=== PATIENT | female | born 1940 | race Caucasian/White ===

== ENCOUNTER 2017-04-13 18:10 | Emergency (ER) | payer MEDICARE ==
[~2017-04-13] VITALS: Ht 144.8 cm; Wt 73.0 kg
[~2017-04-13 18:10] MED LIST: ALPR0.25 PO; AMLO10TA2 PO; CHOL500050 PO; CLOT30CR24 TP; CYAN10006 IM; Docusate Sodium PO; FLUT16SP2 NS; GABA100C PO; LEVE500T9 PO; METH10TA PO; MULT-70 PO; PANT40TA2 PO
[2017-04-13] MEDS ORDERED: OMEP20CA10 PO (18:41)
[2017-04-13] MEDS ORDERED: OMEP40CA37 PO (18:41)
[2017-04-13] MEDS ORDERED: ASPI-869 PO (18:41)
[2017-04-13] MEDS ORDERED: LISI40TA4 PO (18:41)
--- NOTE | 2017-04-13 18:42 | NUR ---
MEDICATIONS REVIEWED WITH PATIENT BEST SHE CAN REMEMBER.
[2017-04-13] MEDS ORDERED: LIDOCAINE HCL 2% 20 ML VIAL TP ONE (19:00)
--- NOTE | 2017-04-13 19:10 | NUR ---
Patient A/Ox4. No Distress noted,able to ambulate to restroom with steady gait
--- NOTE | 2017-04-13 20:13 | NUR ---
Patient discharged to home in stable conditon with daughter taking patient home. Written and verbal after care instructions given. Patient verbalizes understanding of instructions. Staff use wheelchair to place patient on private vehicle that patient's daughter is driving
[2017-04-13 20:15] VITALS: BP 135/78
== END 2017-04-13 20:15 | disposition home or self-care (01) ==
LOC: ER 18:10
DX: S01.01XA Laceration without foreign body of scalp, initial encounter (principal); I10 Essential (primary) hypertension; J45.909 Unspecified asthma, uncomplicated; I50.9 Heart failure, unspecified; Z79.82 Long term (current) use of aspirin; Z85.3 Personal history of malignant neoplasm of breast; Z88.6 Allergy status to analgesic agent; Z88.2 Allergy status to sulfonamides; Z88.1 Allergy status to other antibiotic agents; Z88.8 Allergy status to other drugs, medicaments and biological substances; W01.0XXA Fall on same level from slipping, tripping and stumbling without subsequent striking against object, initial encounter; Y93.89 Activity, other specified; Y99.8 Other external cause status; Y92.89 Other specified places as the place of occurrence of the external cause
CPT/HCPCS: 70450; A4217; A4663

== ENCOUNTER 2017-09-08 16:34 | Emergency (ER) | payer MEDICARE ==
[~2017-09-08] VITALS: Ht 149.9 cm; Wt 72.6 kg
[~2017-09-08 16:34] MED LIST changes: -ALPR0.25 PO; +ASPI-869 PO; -CYAN10006 IM; -Docusate Sodium PO; +LISI40TA4 PO; -MULT-70 PO; +OMEP20CA10 PO; -PANT40TA2 PO
--- NOTE | 2017-09-08 16:45 | NUR ---
DR TRISTAN AT THE BEDSIDE FOR EVAL AND EXAM.
[2017-09-08 17:10] LABS: BASOPHILS # (AUTO) 0.1 K/uL (0.0-8.0); BASOPHILS % (AUTO) 0.7 % (0.0-2.0); EOSINOPHILS # (AUTO) 0.2 K/uL (0.0-0.7); EOSINOPHILS % (AUTO) 2.5 % (0.0-7.0); HEMATOCRIT 43.3 % (37-47); HEMOGLOBIN 14.3 G/DL (12.0-16.0); LYMPHOCYTES # (AUTO) 1.1 K/UL (0.8-4.8); LYMPHOCYTES % (AUTO) 12.1 % (20.5-51.5); MEAN CORPUSCULAR HEMOGLOBIN 28.7 UUG (27.0-31.0); MEAN CORPUSCULAR HGB CONC 33 g/dL (32.0-37.0); MEAN CORPUSCULAR VOLUME 86.7 FL (81.0-99.0); MONOCYTES # (AUTO) 1.2 K/UL (0.1-1.30); MONOCYTES % (AUTO) 12.7 % (0.0-11.0); NEUTROPHILS # (AUTO) 6.6 K/UL (1.8-8.9); PLATELET COUNT (AUTO) 201 K/UL (150-450); WHITE BLOOD COUNT (AUTO) 9.2 K/UL (4.0-11.2)
[2017-09-08 17:12] LABS: CARBON DIOXIDE 33 mmol/L (21-32); CHLORIDE 99 mmol/L (98-107); GLUCOSE 108 mg/dL (74-106); POTASSIUM 4.5 mmol/L (3.5-5.1); UREA NITROGEN, BLOOD 18 mg/dL (7-18)
[2017-09-08 17:18] LABS: ALANINE AMINOTRANSFERASE 19 U/L (14-59); ALKALINE PHOSPHATASE 112 U/L (50-136); ASPARTATE AMINOTRANSFERASE 20 U/L (15-37); BILIRUBIN,DIRECT 0.2 mg/dL (0.0-0.2); BILIRUBIN,TOTAL 0.8 mg/dL (0.2-1.0); TOTAL PROTEIN, SERUM 7.5 g/dL (6.4-8.2)
--- NOTE | 2017-09-08 17:20 | NUR ---
PT RESTING IN SPEAKING TO DAUGHTER AT THE BEDSIDE.
--- NOTE | 2017-09-08 19:03 | NUR ---
IV removed. Catheter intact and site benign. Pressure and 4x4 gauze applied to site. No bleeding noted.
[2017-09-08 19:04] VITALS: BP 138/77
--- NOTE | 2017-09-08 19:05 | NUR ---
Patient discharged to home in stable conditon. Written and verbal after care instructions given. Patient verbalizes understanding of instructions. PT LEFT ER ACCOMPAINED BY FAMILY.
== END 2017-09-08 19:05 | disposition home or self-care (01) ==
LOC: ER 16:35
DX: L03.114 Cellulitis of left upper limb (principal); I11.0 Hypertensive heart disease with heart failure; I50.9 Heart failure, unspecified; J45.909 Unspecified asthma, uncomplicated; M79.7 Fibromyalgia; Z79.82 Long term (current) use of aspirin; Z88.1 Allergy status to other antibiotic agents; Z88.2 Allergy status to sulfonamides
CPT/HCPCS: 36415; 83605; 85025; 85730; 87040; A4663; J2270; J2405; J2543; J3370; J3535; J7030

== ENCOUNTER 2017-11-08 15:32 | Emergency (ER) | payer MEDICARE ==
[~2017-11-08] VITALS: Ht 144.8 cm; Wt 72.1 kg
--- NOTE | 2017-11-08 16:36 | NUR ---
MD is at bedside evaluating the patient, pending MD orders at this time.
--- NOTE | 2017-11-08 16:51 | NUR ---
Patient discharged to home in stable conditon. Written and verbal after care instructions given to patient and family. Patient and family verbalized understanding of instructions.
== END 2017-11-08 16:52 | disposition home or self-care (01) ==
LOC: ER 15:32
DX: S01.01XA Laceration without foreign body of scalp, initial encounter (principal); I11.0 Hypertensive heart disease with heart failure; I50.9 Heart failure, unspecified; I87.2 Venous insufficiency (chronic) (peripheral); J45.909 Unspecified asthma, uncomplicated; K21.9 Gastro-esophageal reflux disease without esophagitis; M79.7 Fibromyalgia; Z79.82 Long term (current) use of aspirin; Z88.1 Allergy status to other antibiotic agents; Z88.2 Allergy status to sulfonamides; Z90.49 Acquired absence of other specified parts of digestive tract; X58.XXXA Exposure to other specified factors, initial encounter; Y93.89 Activity, other specified; Y92.89 Other specified places as the place of occurrence of the external cause; Y99.8 Other external cause status
CPT/HCPCS: A4663

== ENCOUNTER 2018-01-23 12:32 | Inpatient (IN) | payer MEDICARE ==
[~2018-01-23] VITALS: Ht 144.8 cm; Wt 77.6 kg
[2018-01-23] MEDS ORDERED: ONDANSETRON 4 MG/2 ML VIAL ONE ×3 (13:29→17:58)
[2018-01-23] MEDS ORDERED: MORPHINE SULFATE 4 MG/1 ML DISP.SYRIN ONE ×2 (13:29→13:32)
[2018-01-23] MEDS ORDERED: MORPHINE SULFATE 2 MG/1 ML DISP.SYRIN IV ONE (13:30)
[2018-01-23] MEDS ORDERED: ONDANSETRON 4 MG/2 ML VIAL IV ONE (13:30)
[2018-01-23 13:38] LABS: BASOPHILS % (AUTO) 0.2 % (0.0-2.0); EOSINOPHILS % (AUTO) 0.6 % (0.0-7.0); HEMATOCRIT 39.8 % (31.2-41.9); HEMOGLOBIN 13.6 g/dL (10.9-14.3); LYMPHOCYTES # (AUTO) 0.9 K/uL (20.0-40.0); LYMPHOCYTES % (AUTO) 12.3 % (20.5-51.5); MEAN CORPUSCULAR HEMOGLOBIN 30.3 uug (24.7-32.8); MEAN CORPUSCULAR HGB CONC 34 g/dL (32.3-35.6); MEAN CORPUSCULAR VOLUME 88.2 fL (75.5-95.3); MONOCYTES # (AUTO) 0.8 K/uL (2.0-10.0); MONOCYTES % (AUTO) 10.7 % (0.0-11.0); NEUTROPHILS # (AUTO) 5.4 K/uL (1.8-8.9); NEUTROPHILS % (AUTO) 76.2 % (38.5-71.5); PLATELET COUNT (AUTO) 191 K/uL (179-408); RED BLOOD CELL COUNT(AUTO) 4.51 MIL/uL (3.63-4.92); WHITE BLOOD COUNT (AUTO) 7.1 K/uL (3.8-11.8)
--- NOTE | 2018-01-23 13:39 | NUR ---
PT CO CP TO .
[2018-01-23] MEDS ORDERED: HYDROMORPHONE 1 MG/1 ML DISP.SYRIN IV ONE ×2 (13:45→14:45)
[2018-01-23 13:48] LABS: CARBON DIOXIDE 34 mmol/L (21-32); CHLORIDE 97 mmol/L (98-107); GLUCOSE 116 mg/dL (74-106); POTASSIUM 4.5 mmol/L (3.5-5.1); UREA NITROGEN, BLOOD 21 mg/dL (7-18)
[2018-01-23] MEDS ORDERED: HYDROMORPHONE 2 MG/1 ML DISP.SYRIN ONE ×2 (13:48→15:20)
[2018-01-23 13:53] LABS: ALANINE AMINOTRANSFERASE 23 U/L (14-59); ALKALINE PHOSPHATASE 98 U/L (50-136); ASPARTATE AMINOTRANSFERASE 23 U/L (15-37); BILIRUBIN,DIRECT 0.2 mg/dL (0.0-0.2); BILIRUBIN,TOTAL 0.7 mg/dL (0.2-1.0); TOTAL PROTEIN, SERUM 7.6 g/dL (6.4-8.2)
[2018-01-23] MEDS ORDERED: AMLO5TAB2 PO (14:44)
[2018-01-23] MEDS ORDERED: IV NORMAL SALINE 1000 ML BAG IV ONE (14:45)
[2018-01-23] MEDS ORDERED: IV NORMAL SALINE 100 ML ONE (14:46)
[2018-01-23] MEDS ORDERED: IOHEXOL 300MG/ML 100 ML INFUS..BTL ONE (14:46)
--- NOTE | 2018-01-23 16:56 | NUR ---
eunice talamantes talking to dr. lim
[2018-01-23] MEDS ORDERED: ONDANSETRON 4 MG/2 ML VIAL IV STA (17:57)
--- NOTE | 2018-01-23 18:00 | NUR ---
pt ambulated to bathroom.
[2018-01-23 18:32] LABS: *BILIRUBIN,URIN NEGATIVE (NEGATIVE); *BLOOD, URINE 3+ (NEGATIVE); *CLARITY,URINE CLOUDY (CLEAR); *COLOR,URINE PINK (YELLOW); *KETONES,URINE NEGATIVE (NEGATIVE); *PROTEIN,URINE 1+ (NEGATIVE); *UROBILINOGEN,URINE 0.2 E.U./dl (NORMAL); LEUKOCYTE ESTERASE ,URINE 1+ (NEGATIVE); NITRITE, URINE NEGATIVE (NEGATIVE); PH,URINE 5.5 (5.0-8.0); UGLUCOSE NEGATIVE (NEGATIVE)
--- NOTE | 2018-01-23 18:37 | NUR ---
transfered pt ot floor in stable condition. pt says the pain down to tolerable level of 3/10 when urinating. pt nausea has subsided.
[2018-01-23] MEDS ORDERED: GABAPENTIN 100 MG CAPSULE PO SCH (18:45)
[2018-01-23 18:50] VITALS: BP 96/49
[2018-01-23 19:01] LABS: BACTERIA,URINE FEW /HPF (NONE SEEN); RBC,URINE TNTC /HPF (0-3); SQUAMOUS EPITHELIAL CELL,UR MODERATE /HPF (NONE SEEN)
--- NOTE | 2018-01-23 19:10 | NUR ---
PT ARRIVED 1845 PER DAYSHIFT NURSE FROM ER. PT IV INTACT AND PATENT. PT ALERT, AWAKE, AND ORIENTED X4. DX: CHEST PAIN AND BLADDER CONTUSION.PT ON TELE. ADMISSION PACKET AND CARE PLAN INITIATED. CALL LIGHT WITHIN REACH. PT WANTS ONE OF THE SIDERAILS DOWN ON HER LEFT SIDE FOR EASY ACCESS TO PLUG HER BEAMER HAND. WILL CONTINUE TO MONITOR.
[2018-01-23] MEDS ORDERED: LEVOFLOXACIN 500 MG/D5W 500 MG in PREMIXED 1 EACH IV SCH (19:15)
[2018-01-23] MEDS ORDERED: ACETAMINOPHEN 325 MG TABLET PO PRN (19:15)
[2018-01-23] MEDS ORDERED: HYDROMORPHONE 1 MG/1 ML DISP.SYRIN IV PRN (19:15)
[2018-01-23] MEDS ORDERED: MAGNESIUM HYDROXIDE 30 ML LIQUID UDC PO PRN (19:15)
[2018-01-23] MEDS ORDERED: LEVOFLOXACIN 500 MG/D5W 500 MG in PREMIXED 1 EACH IV ONE (20:00)
[2018-01-23 20:07] VITALS: BP 108/57
[2018-01-23] MEDS: DOCUSATE SODIUM 100 MG CAPSULE PO SCH (20:58)
[2018-01-23] MEDS ORDERED: DOCUSATE SODIUM 250 MG CAPSULE PO SCH (21:00)
[2018-01-23] MEDS: NEOMY/BACITRAC/POLYMI OINT 28.35 GM TUBE TOP SCH (21:00)
[2018-01-23] MEDS: HYDROMORPHONE 2 MG/1 ML DISP.SYRIN IV PRN (21:01)
[2018-01-24 00:42] VITALS: BP_SYST 100; BP_SYST 108; BP_DIAS 50; BP_DIAS 59
[2018-01-24] MEDS: HYDROMORPHONE 2 MG/1 ML DISP.SYRIN IV PRN ×6 (00:56→21:33)
[2018-01-24] MEDS: ONDANSETRON 4 MG/2 ML VIAL IV PRN ×4 (01:24→21:38)
[2018-01-24 04:00] VITALS: BP 109/57
[2018-01-24] MEDS: PANTOPRAZOLE SODIUM 40 MG TABLET.DR PO SCH (06:22)
--- NOTE | 2018-01-24 06:50 | NUR ---
PT SLEPT INTERMITTENTLY. PT ASKING FOR PAIN MEDICATION.PAIN MEDICATION GIVEN. CALL LIGHT WITHIN REACH. SAFETY AND COMFORT PROVIDED. WILL ENDORSE TO DAYSHIFT NURSE.
[2018-01-24 07:14] LABS: BASOPHILS % (AUTO) 0.1 % (0.0-2.0); EOSINOPHILS % (AUTO) 0.4 % (0.0-7.0); HEMATOCRIT 40.1 % (31.2-41.9); HEMOGLOBIN 13.4 g/dL (10.9-14.3); LYMPHOCYTES # (AUTO) 0.9 K/uL (20.0-40.0); LYMPHOCYTES % (AUTO) 9.3 % (20.5-51.5); MEAN CORPUSCULAR HEMOGLOBIN 29.7 uug (24.7-32.8); MEAN CORPUSCULAR HGB CONC 33 g/dL (32.3-35.6); MEAN CORPUSCULAR VOLUME 89.1 fL (75.5-95.3); MONOCYTES # (AUTO) 0.9 K/uL (2.0-10.0); MONOCYTES % (AUTO) 10.1 % (0.0-11.0); NEUTROPHILS # (AUTO) 7.5 K/uL (1.8-8.9); NEUTROPHILS % (AUTO) 80.1 % (38.5-71.5); PLATELET COUNT (AUTO) 202 K/uL (179-408)
[2018-01-24 07:20] LABS: ALANINE AMINOTRANSFERASE 19 U/L (14-59); ALKALINE PHOSPHATASE 82 U/L (50-136); ASPARTATE AMINOTRANSFERASE 17 U/L (15-37); BILIRUBIN,TOTAL 0.7 mg/dL (0.2-1.0); CARBON DIOXIDE 32 mmol/L (21-32); CHLORIDE 100 mmol/L (98-107); CHOLESTEROL 147 mg/dL (<200); CREATININE 2.3 mg/dL (0.6-1.3); GLUCOSE 100 mg/dL (74-106); HDL CHOLESTEROL 49 mg/dL (40-60); MAGNESIUM 1.9 mg/dL (1.8-2.4); PHOSPHOROUS 4.7 mg/dL (2.5-4.9); POTASSIUM 5.2 mmol/L (3.5-5.1); TOTAL PROTEIN, SERUM 6.6 g/dL (6.4-8.2); TRIGLYCERIDES 75 MG/DL (30-150); UREA NITROGEN, BLOOD 31 mg/dL (7-18)
--- NOTE | 2018-01-24 07:20 | NUR ---
RECEIVED REPORT FROM CONCRETE HOPPER OPERATOR NURSE, PATIENT IN BED ASLEEP, NO EVIDENCE OF DISTRESS NOTED AT THIS TIME, BED IN LOW POSITION, SIDE RAILS UP X2. BED ALARM ON.
[2018-01-24 07:25] LABS: THYROID STIMULATING HORMONE 2.027 mIU/mL (0.358-3.740)
[2018-01-24 07:33] LABS: WHITE BLOOD COUNT (AUTO) 9.3 K/uL (3.8-11.8)
[2018-01-24] MEDS: GABAPENTIN 300 MG CAPSULE PO SCH ×3 (08:02→16:35)
[2018-01-24] MEDS: NEOMY/BACITRAC/POLYMI OINT 28.35 GM TUBE TOP SCH ×2 (08:03→21:23)
[2018-01-24 11:24] VITALS: BP 115/60
[2018-01-24 11:27] VITALS: BP 97/43
[2018-01-24] MEDS ORDERED: MAGNESIUM CITRATE 296 ML BOTTLE PO ONE (13:00)
[2018-01-24] MEDS ORDERED: IV NORMAL SALINE 500 ML IV ONE (14:59)
--- NOTE | 2018-01-24 15:00 | NUR ---
PATIENT WAS DRINKING THE MAGNESIUM CITRATE AND VOMITED ALL OF IT. PATIENT REQUESTED ZOFRAN, AND ORDER RECEIVED FROM DR. CARDENAS TO CHANGE TO [id number].
[2018-01-24 15:09] VITALS: BP 114/64
--- NOTE | 2018-01-24 18:14 | NUR ---
PATIENT HAS BEEN COOPERATIVE WITH CARE. PATIENT HAS NOT HAD A SIGNIFICANT APPETITE TODAY, BUT DOES ATTEMPT TO AMBULATE ON HER OWN. PATIENT REQUESTED TO TALK TO DOCTOR ABOUT DILAUDID DOSE, AND REQUEST TO CHANGE TO 3HOURS NEEDED APPROVED BY DR. MEYER. PATIENT IS INTERMITTENTLY SLEEPING, NO EVIDENCE OF DISTRESS NOTED AT THIS TIME, BED IN LOW POSITION, ONE SIDE RAIL ONLY PER PATIENT REQUEST. BED ALARM ON.
[2018-01-24] MEDS ORDERED: HYDROMORPHONE 1 MG/1 ML DISP.SYRIN IV PRN (18:15)
--- NOTE | 2018-01-24 19:30 | NUR ---
PT RECEIVED IN BED, AWAKE. A/OX4. ABLE TO MAKE NEEDS KNOWN. V/S STABLE. IN NO ACUTE DISTRESS. PT C/O HEAD PAIN 07/10. 68 SINUS RHYTHM ON THE TELE MONITOR. ON RA, TOLERATING WELL. AFEBRILE. IV INTACT AND PATENT, HEP-LOCKED. HOB ELEVATED. SAFETY MEASURES IMPLEMENTED. BED ALARM SET. CALL LIGHT WITHIN REACH.
[2018-01-24 20:00] VITALS: BP 122/42
[2018-01-24] MEDS: DOCUSATE SODIUM 100 MG CAPSULE PO SCH (21:22)
[2018-01-24] MEDS: LEVOFLOXACIN 250MG /D5W 250 MG in PREMIXED 1 EACH IV SCH (21:22)
[2018-01-25 00:38] VITALS: BP 110/45
[2018-01-25] MEDS: HYDROMORPHONE 2 MG/1 ML DISP.SYRIN IV PRN ×6 (01:31→21:44)
[2018-01-25] MEDS: ONDANSETRON 4 MG/2 ML VIAL IV PRN ×2 (01:38→12:38)
[2018-01-25 04:00] VITALS: BP 149/52
[2018-01-25] MEDS ORDERED: HYDROMORPHONE 1 MG/1 ML DISP.SYRIN ONE ×2 (05:17→05:19)
--- NOTE | 2018-01-25 06:25 | NUR ---
END SHIFT NOTES. PT SLEPT WELL THROUGHOUT SHIFT. IN STABLE CONDITION. 73 SINUS RHYTHM ON THE TELE MONITOR. IV ABX INFUSED.IV INTACT AND PATENT. PT CONT TO HAVE LOW GRADE FEVER. COOLING MEASURES INITIATED. ROOM TEMP DECREASED. ICE PACKS PROVIDED. TYLENOL ADMINISTERED. PAIN MANAGED THROUGHOUT SHIFT. HOWEVER, PT CONT TO C/O MODERATE TO SEVERE ABDOMINAL PAIN. COMFORT MEASURES PROVIDED. ALL NEEDS ATTENDED. SAFETY MAINTAINED. CALL LIGHT WITHIN REACH.
[2018-01-25] MEDS: PANTOPRAZOLE SODIUM 40 MG TABLET.DR PO SCH (06:26)
--- NOTE | 2018-01-25 06:30 | NUR ---
TYLENOL RETURNED. PT REFUSED. STATES SHE IS ALLERGIC. COOLING MEASURES CONT. PT IN STABLE CONDITION. WILL CONT TO MONITOR.
--- NOTE | 2018-01-25 07:20 | NUR ---
Received report from night clerk auditor nurse, patient in bed asleep, no evidence of distress noted at this time, bed in low position, side rails up x2.
[2018-01-25 07:26] LABS: ALANINE AMINOTRANSFERASE 15 U/L (14-59); ALKALINE PHOSPHATASE 78 U/L (50-136); ASPARTATE AMINOTRANSFERASE 15 U/L (15-37); BILIRUBIN,TOTAL 0.6 mg/dL (0.2-1.0); CARBON DIOXIDE 33 mmol/L (21-32); CHLORIDE 101 mmol/L (98-107); CREATINE KINASE, TOTAL 38 U/L (26-192); GLUCOSE 96 mg/dL (74-106); MAGNESIUM 2.2 mg/dL (1.8-2.4); PHOSPHOROUS 3.8 mg/dL (2.5-4.9); POTASSIUM 5.5 mmol/L (3.5-5.1); TOTAL PROTEIN, SERUM 6.6 g/dL (6.4-8.2); UREA NITROGEN, BLOOD 32 mg/dL (7-18)
[2018-01-25 07:39] LABS: BASOPHILS % (AUTO) 0.2 % (0.0-2.0); EOSINOPHILS % (AUTO) 0.4 % (0.0-7.0); HEMOGLOBIN 12.5 g/dL (10.9-14.3); LYMPHOCYTES # (AUTO) 0.8 K/uL (20.0-40.0); LYMPHOCYTES % (AUTO) 10.8 % (20.5-51.5); MEAN CORPUSCULAR HEMOGLOBIN 30.1 uug (24.7-32.8); MEAN CORPUSCULAR HGB CONC 34 g/dL (32.3-35.6); MEAN CORPUSCULAR VOLUME 89.5 fL (75.5-95.3); MONOCYTES % (AUTO) 13.4 % (0.0-11.0); NEUTROPHILS # (AUTO) 5.5 K/uL (1.8-8.9); NEUTROPHILS % (AUTO) 75.2 % (38.5-71.5); PLATELET COUNT (AUTO) 182 K/uL (179-408); RED BLOOD CELL COUNT(AUTO) 4.14 MIL/uL (3.63-4.92); WHITE BLOOD COUNT (AUTO) 7.3 K/uL (3.8-11.8)
[2018-01-25] MEDS: GABAPENTIN 300 MG CAPSULE PO SCH ×3 (08:33→17:57)
[2018-01-25] MEDS: NEOMY/BACITRAC/POLYMI OINT 28.35 GM TUBE TOP SCH ×2 (08:35→21:48)
[2018-01-25] MEDS ORDERED: methylPREDNISolone SOD SUCC 40 MG/ML VIAL IV ONE (10:30)
[2018-01-25] MEDS ORDERED: SODIUM POLYSTYRENE SULFONATE 15 G/60 ML LIQUID UDC PO ONE (11:15)
[2018-01-25] MEDS: IV 1/2NS 1000 ML 1,000 ML IV PRN (11:38)
[2018-01-25 11:48] VITALS: BP 98/42
--- NOTE | 2018-01-25 14:00 | NUR ---
Patient reported that she went to the bathroom and "a piece of her organ came out of her rectum". Upon assessment, a small piece of red tissue was visible, and retracted back into the rectum. Dr. Charles was notified.
[2018-01-25 15:46] VITALS: BP 112/46
[2018-01-25 16:23] LABS: *BILIRUBIN,URIN NEGATIVE (NEGATIVE); *BLOOD, URINE 2+ (NEGATIVE); *CLARITY,URINE CLEAR (CLEAR); *COLOR,URINE YELLOW (YELLOW); *KETONES,URINE NEGATIVE (NEGATIVE); *PROTEIN,URINE NEGATIVE (NEGATIVE); *UROBILINOGEN,URINE 0.2 E.U./dl (NORMAL); LEUKOCYTE ESTERASE ,URINE NEGATIVE (NEGATIVE); NITRITE, URINE NEGATIVE (NEGATIVE); PH,URINE 5.5 (5.0-8.0); UGLUCOSE NEGATIVE (NEGATIVE)
[2018-01-25 16:42] LABS: *CREATININE,URINE 116.1 mg/dL (30-125); *URINE TOTAL PROTEIN RANDOM 27.7 mg/dL (<150/24HR)
[2018-01-25 16:44] LABS: MUCUS,URINE FEW /LPF (0-FEW); SQUAMOUS EPITHELIAL CELL,UR MODERATE /HPF (NONE SEEN)
--- NOTE | 2018-01-25 18:47 | NUR ---
Patient has been cooperative with care, and continues to have pain. No bowel movements today. Bed is in low position, side rails up x2, bed alarm on. All needs met. Patient has been informed that the will be consulting various physicians to see her tomorrow.
--- NOTE | 2018-01-25 19:30 | NUR ---
PT RECEIVED IN BED, ASLEEP. WAKES TO NAME. A/OX4. ABLE TO MAKE NEEDS KNOWN. V/S STABLE. IN NO ACUTE DISTRESS. NO C/O PAIN AT THIS TIME. 69 SINUS RHYTHM ON THE TELE MONITOR. IVF INFUSING. ON 2LNC, TOLERATING WELL. AFEBRILE. HOB ELEVATED. PT HAS ICE PACK PLACED ON ABDOMEN FOR COMFORT. BILATERAL LOWER EXTREMITIES ELEVATED. SAFETY MEASURES IMPLEMENTED. BED ALARM SET. CALL LIGHT WITHIN REACH.
[2018-01-25 20:00] VITALS: BP 125/62
[2018-01-25] MEDS: LEVOFLOXACIN 250MG /D5W 250 MG in PREMIXED 1 EACH IV SCH (21:42)
[2018-01-25] MEDS: DOCUSATE SODIUM 100 MG CAPSULE PO SCH (21:48)
[2018-01-26] VITALS: BP 106/53
[2018-01-26] MEDS: HYDROMORPHONE 2 MG/1 ML DISP.SYRIN IV PRN ×6 (00:51→16:53)
[2018-01-26] MEDS ORDERED: HYDROMORPHONE 2 MG/1 ML DISP.SYRIN ONE ×2 (04:09→05:48)
[2018-01-26] MEDS: IV 1/2NS 1000 ML 1,000 ML IV PRN (04:21)
[2018-01-26 04:48] VITALS: BP 110/64
[2018-01-26] MEDS: PANTOPRAZOLE SODIUM 40 MG TABLET.DR PO SCH (06:24)
--- NOTE | 2018-01-26 06:33 | NUR ---
END OF SHIFT NOTES. PT SLEPT WELL THROUGHOUT SHIFT. IN STABLE CONDITION. PAIN MANAGED. IV ABX INFUSED. IV PICC LINE TKO AT 3CC/HR. SAFETY MAINTAINED. CALL LIGHT WITHIN REACH
--- NOTE | 2018-01-26 06:36 | NUR ---
PT CURRENTLY SINUS VERONICA 55 BPM ON THE TELE MONITOR.
[2018-01-26 07:11] LABS: BASOPHILS % (AUTO) 0.2 % (0.0-2.0); EOSINOPHILS % (AUTO) 0.2 % (0.0-7.0); HEMATOCRIT 36.4 % (31.2-41.9); HEMOGLOBIN 12.3 g/dL (10.9-14.3); LYMPHOCYTES # (AUTO) 0.9 K/uL (20.0-40.0); LYMPHOCYTES % (AUTO) 12.4 % (20.5-51.5); MEAN CORPUSCULAR HEMOGLOBIN 30.1 uug (24.7-32.8); MEAN CORPUSCULAR HGB CONC 34 g/dL (32.3-35.6); MONOCYTES # (AUTO) 1.1 K/uL (2.0-10.0); MONOCYTES % (AUTO) 14.2 % (0.0-11.0); NEUTROPHILS # (AUTO) 5.4 K/uL (1.8-8.9); PLATELET COUNT (AUTO) 186 K/uL (179-408); RED BLOOD CELL COUNT(AUTO) 4.09 MIL/uL (3.63-4.92); WHITE BLOOD COUNT (AUTO) 7.4 K/uL (3.8-11.8)
[2018-01-26 07:20] LABS: ALANINE AMINOTRANSFERASE 17 U/L (14-59); ALKALINE PHOSPHATASE 72 U/L (50-136); ASPARTATE AMINOTRANSFERASE 19 U/L (15-37); BILIRUBIN,TOTAL 0.5 mg/dL (0.2-1.0); CARBON DIOXIDE 31 mmol/L (21-32); CHLORIDE 100 mmol/L (98-107); CREATININE 2.3 mg/dL (0.6-1.3); GLUCOSE 90 mg/dL (74-106); MAGNESIUM 2.1 mg/dL (1.8-2.4); PHOSPHOROUS 3.9 mg/dL (2.5-4.9); POTASSIUM 4.6 mmol/L (3.5-5.1); TOTAL PROTEIN, SERUM 6.2 g/dL (6.4-8.2); UREA NITROGEN, BLOOD 30 mg/dL (7-18)
--- NOTE | 2018-01-26 07:30 | NUR ---
Awake, alert, oriented x 4. O2 at 2L/NC. IVF infusing
[2018-01-26] MEDS: GABAPENTIN 300 MG CAPSULE PO SCH ×3 (08:51→16:53)
[2018-01-26] MEDS: NEOMY/BACITRAC/POLYMI OINT 28.35 GM TUBE TOP SCH (08:55)
[2018-01-26 11:04] VITALS: BP 102/52
[2018-01-26] MEDS: ONDANSETRON 4 MG/2 ML VIAL IV PRN ×2 (13:49→21:48)
--- NOTE | 2018-01-26 13:49 | NUR ---
Nauseated, Zofran IV given. No vomiting noted
[2018-01-26] MEDS: FLUTICASONE PROP NASAL SPRAY 16 GM BOTTLE NS SCH (14:29)
[2018-01-26] MEDS ORDERED: CARISOPRODOL 350 MG TABLET PO PRN (14:45)
[2018-01-26 15:08] VITALS: BP 102/48
--- NOTE | 2018-01-26 18:31 | NUR ---
Complaining of muscle spasm at the back. Soma po given , resting
--- NOTE | 2018-01-26 19:00 | NUR ---
RECEIVED IN BED ALERT ORIENTED, NO SOB NO CHEST PAIN, CONT ON PAIN MANAGEMENT, CONT TO MONITOR.
[2018-01-26 20:00] VITALS: BP 130/62
[2018-01-26] MEDS ORDERED: LEVOFLOXACIN 250 MG TABLET PO SCH (21:00)
[2018-01-26] MEDS: DOCUSATE SODIUM 100 MG CAPSULE PO SCH (21:26)
[2018-01-27] MEDS: MORPHINE SULFATE 4 MG/1 ML DISP.SYRIN IV PRN ×4 (01:55→13:14)
[2018-01-27] MEDS: NEOMY/BACITRAC/POLYMI OINT 28.35 GM TUBE TOP SCH ×2 (01:59→08:49)
[2018-01-27] MEDS: ONDANSETRON 4 MG/2 ML VIAL IV PRN (04:52)
--- NOTE | 2018-01-27 06:01 | NUR ---
PATIENT SLEPT ON AND OFF, CONT ON PAIN MANAGEMENT ABDOMEN AND RECTAL PAIN, WITH RELIEF AFTER 30 MINUTES, ASSISTED WITH TOILETING, KEPT CLEAN AND DRY, KEPT COMFORTABLE.
[2018-01-27] MEDS: PANTOPRAZOLE SODIUM 40 MG TABLET.DR PO SCH (06:08)
[2018-01-27 06:09] VITALS: BP 130/78
[2018-01-27 06:53] LABS: BASOPHILS % (AUTO) 0.2 % (0.0-2.0); EOSINOPHILS % (AUTO) 0.5 % (0.0-7.0); HEMATOCRIT 35.2 % (31.2-41.9); HEMOGLOBIN 11.9 g/dL (10.9-14.3); LYMPHOCYTES # (AUTO) 0.8 K/uL (20.0-40.0); LYMPHOCYTES % (AUTO) 17.9 % (20.5-51.5); MEAN CORPUSCULAR HEMOGLOBIN 29.9 uug (24.7-32.8); MEAN CORPUSCULAR HGB CONC 34 g/dL (32.3-35.6); MEAN CORPUSCULAR VOLUME 88.5 fL (75.5-95.3); MONOCYTES # (AUTO) 0.5 K/uL (2.0-10.0); MONOCYTES % (AUTO) 11.6 % (0.0-11.0); NEUTROPHILS % (AUTO) 69.8 % (38.5-71.5); PLATELET COUNT (AUTO) 178 K/uL (179-408); RED BLOOD CELL COUNT(AUTO) 3.97 MIL/uL (3.63-4.92)
[2018-01-27 07:00] LABS: ALANINE AMINOTRANSFERASE 15 U/L (14-59); ALKALINE PHOSPHATASE 73 U/L (50-136); ASPARTATE AMINOTRANSFERASE 17 U/L (15-37); BILIRUBIN,TOTAL 0.6 mg/dL (0.2-1.0); CARBON DIOXIDE 32 mmol/L (21-32); CHLORIDE 101 mmol/L (98-107); CREATININE 0.9 mg/dL (0.6-1.3); GLUCOSE 92 mg/dL (74-106); MAGNESIUM 1.9 mg/dL (1.8-2.4); PHOSPHOROUS 2.7 mg/dL (2.5-4.9); TOTAL PROTEIN, SERUM 6.6 g/dL (6.4-8.2); UREA NITROGEN, BLOOD 16 mg/dL (7-18)
[2018-01-27 07:11] LABS: WHITE BLOOD COUNT (AUTO) 4.3 K/uL (3.8-11.8)
--- NOTE | 2018-01-27 07:30 | NUR ---
Awake, alert, oriented x 4, on moderate high back rest. O2 at 2L/NC
[2018-01-27] MEDS: GABAPENTIN 300 MG CAPSULE PO SCH ×2 (08:46→13:13)
[2018-01-27] MEDS: FLUTICASONE PROP NASAL SPRAY 16 GM BOTTLE NS SCH (08:49)
[2018-01-27 12:01] VITALS: BP 129/46
[2018-01-27] MEDS ORDERED: LEVO500T2 PO (12:32)
[2018-01-27] MEDS ORDERED: BISACODYL 10 MG SUPP.RECT RC ONE (13:00)
[2018-01-27 15:56] VITALS: BP 122/59
--- NOTE | 2018-01-27 16:36 | NUR ---
With discharge order to home. Saline lock removed. Prescription and DC instruction given to patient, verbalized instruction. Waiting for daughter to corn picker
--- NOTE | 2018-01-27 16:55 | NUR ---
Went home per wheelchair in fair condition, afebrile, not in distress, picked up by daughter.
== END 2018-01-27 16:53 | disposition home or self-care (01) | DRG 760 ==
LOC: ER 12:32 → TELE 17:33 → MED 01-26 11:05
PROVIDERS: ADMIT Internal Medicine; ATTEND Internal Medicine
DX: S37.92XA Contusion of unspecified urinary and pelvic organ, initial encounter (principal); N17.9 Acute kidney failure, unspecified; E44.0 Moderate protein-calorie malnutrition; D68.59 Other primary thrombophilia; E83.42 Hypomagnesemia; I11.0 Hypertensive heart disease with heart failure; I50.32 Chronic diastolic (congestive) heart failure; E87.5 Hyperkalemia; N13.30 Unspecified hydronephrosis; N39.0 Urinary tract infection, site not specified; N81.10 Cystocele, unspecified; M41.9 Scoliosis, unspecified; R16.1 Splenomegaly, not elsewhere classified; N14.1 Nephropathy induced by other drugs, medicaments and biological substances; Y92.9 Unspecified place or not applicable; W19.XXXA Unspecified fall, initial encounter; R31.0 Gross hematuria; I87.2 Venous insufficiency (chronic) (peripheral); Z91.81 History of falling; N81.6 Rectocele; Z74.09 Other reduced mobility; E66.9 Obesity, unspecified; Z68.35 Body mass index [BMI] 35.0-35.9, adult; Z79.82 Long term (current) use of aspirin; Z79.899 Other long term (current) drug therapy; Z88.1 Allergy status to other antibiotic agents; Z88.2 Allergy status to sulfonamides; Z88.8 Allergy status to other drugs, medicaments and biological substances; N99.3 Prolapse of vaginal vault after hysterectomy; K56.41 Fecal impaction; K21.9 Gastro-esophageal reflux disease without esophagitis; K42.9 Umbilical hernia without obstruction or gangrene; G89.4 Chronic pain syndrome; Z85.3 Personal history of malignant neoplasm of breast; Z98.82 Breast implant status; Z87.440 Personal history of urinary (tract) infections; R29.6 Repeated falls; Z79.891 Long term (current) use of opiate analgesic; M79.7 Fibromyalgia; I70.0 Atherosclerosis of aorta; R07.89 Other chest pain; E78.5 Hyperlipidemia, unspecified; E53.8 Deficiency of other specified B group vitamins; D64.9 Anemia, unspecified; R09.02 Hypoxemia
CPT/HCPCS: 36415; 70030-TC; 71045; 76770; 83735; 83970; 84100; 84156; 84300; 84443; 85025; 85730; 87086; 93005; 93307; A4663; J1170; J1956; J2270; J2405; J2920; J3490; J3535; J7030; Q9967

== ENCOUNTER 2018-11-02 22:37 | Emergency (ER) | payer MEDICARE ==
[~2018-11-02] VITALS: Ht 144.8 cm; Wt 77.1 kg
[~2018-11-02 22:37] MED LIST changes: -AMLO10TA2 PO; +AMLO5TAB7 PO; -CLOT30CR24 TP; -LEVE500T9 PO; +LEVO500T2 PO
--- NOTE | 2018-11-02 23:04 | NUR ---
DR. SNOW AT BEDSIDE FOR MSE.
[2018-11-02] MEDS ORDERED: CLONIDINE HCL 0.2 MG TABLET ONE (23:09)
[2018-11-02] MEDS ORDERED: CLONIDINE HCL 0.2 MG TABLET PO ONE (23:15)
[2018-11-02 23:56] VITALS: BP 121/73
--- NOTE | 2018-11-02 23:56 | NUR ---
Patient discharged to home in stable conditon. Written and verbal after care instructions given. Patient verbalizes understanding of instructions. PATIENT LEFT WITH STABLE GAIT.
== END 2018-11-02 23:57 | disposition home or self-care (01) ==
LOC: ER 22:40
DX: I11.0 Hypertensive heart disease with heart failure (principal); I50.9 Heart failure, unspecified; J45.909 Unspecified asthma, uncomplicated; G89.29 Other chronic pain; M54.9 Dorsalgia, unspecified; K21.9 Gastro-esophageal reflux disease without esophagitis; Z90.710 Acquired absence of both cervix and uterus; Z90.49 Acquired absence of other specified parts of digestive tract; Z88.2 Allergy status to sulfonamides; Z88.1 Allergy status to other antibiotic agents; Z88.8 Allergy status to other drugs, medicaments and biological substances; Z79.82 Long term (current) use of aspirin; Z79.51 Long term (current) use of inhaled steroids; Z79.899 Other long term (current) drug therapy
CPT/HCPCS: A4663

== ENCOUNTER 2024-06-05 14:35 | Inpatient (IN) | payer MEDICARE, OTHER ==
[~2024-06-05] VITALS: Ht 152.4 cm; Wt 70.3 kg
[~2024-06-05 14:35] MED LIST changes: +AMLO-212 PO; -AMLO5TAB7 PO; +LISI40TA13 PO; -LISI40TA4 PO; -OMEP20CA10 PO; +OMEP20CA15 PO
[2024-06-05] MEDS: METOPROLOL TARTRATE 5 MG/5 ML VIAL IVP ONE (16:30)
[2024-06-05] MEDS: NITROGLYCERIN OINT 1 GM PACKET TP ONE (16:30)
[2024-06-05 16:46] LABS: BASOPHILS % (AUTO) 0.4 % (0.0-2.0); HEMATOCRIT 41.6 % (31.2-41.9); HEMOGLOBIN 13.9 g/dL (10.9-14.3); LYMPHOCYTES # (AUTO) 1.2 K/uL (0.8-4.8); LYMPHOCYTES % (AUTO) 24.2 % (20.5-51.5); MEAN CORPUSCULAR HEMOGLOBIN 30.7 uug (24.7-32.8); MEAN CORPUSCULAR HGB CONC 33 g/dL (32.3-35.6); MEAN CORPUSCULAR VOLUME 91.9 fL (75.5-95.3); MONOCYTES # (AUTO) 0.5 K/uL (0.1-1.30); MONOCYTES % (AUTO) 9.6 % (0.0-11.0); NEUTROPHILS # (AUTO) 3.2 K/uL (1.8-8.9); NEUTROPHILS % (AUTO) 64.8 % (38.5-71.5); PLATELET COUNT (AUTO) 197 K/uL (179-408); RED BLOOD CELL COUNT(AUTO) 4.53 MIL/uL (3.63-4.92); RED CELL DISTRIBUTION WIDTH 13.7 % (12.3-17.7)
[2024-06-05 16:50] LABS: CALCIUM 9.2 mg/dL (8.5-10.1); CARBON DIOXIDE 24 mmol/L (21-32); CHLORIDE 108 mmol/L (98-107); CREATININE 0.7 mg/dL (0.6-1.3); GLUCOSE 101 mg/dL (74-106); POTASSIUM 3.6 mmol/L (3.5-5.1); SODIUM SERUM 144 mmol/L (136-145); UREA NITROGEN, BLOOD 11 mg/dL (7-18)
[2024-06-05 17:03] LABS: ALANINE AMINOTRANSFERASE 26 U/L (14-59); ALBUMIN 3.5 g/dL (3.4-5.0); ALKALINE PHOSPHATASE 95 U/L (50-136); ASPARTATE AMINOTRANSFERASE 21 U/L (15-37); BILIRUBIN,DIRECT 0.3 mg/dL (0.0-0.2); BILIRUBIN,TOTAL 0.9 mg/dL (0.2-1.0); NT-PRO BNP 442 pg/mL (0-125); TOTAL PROTEIN, SERUM 6.8 g/dL (6.4-8.2)
[2024-06-05] MEDS ORDERED: NITROGLYCERIN OINT 1 GM PACKET TP ONE (17:18)
[2024-06-05] MEDS ORDERED: AMLODIPINE 5 MG TABLET ONE (17:18)
[2024-06-05] MEDS ORDERED: METOPROLOL TARTRATE 5 MG/5 ML VIAL IVP ONE (17:24)
[2024-06-05] MEDS ORDERED: SWABABLE VALVE TRANSFER SET EA MC ONE (18:21)
[2024-06-05] MEDS ORDERED: IOHEXOL 300MG/ML 100 ML INFUS..BTL ONE (18:21)
[2024-06-05] MEDS ORDERED: IV NORMAL SALINE 250 ML IV ONE (18:21)
[2024-06-05] MEDS ORDERED: MAGNESIUM HYDROXIDE 30 ML LIQUID UDC PO PRN (18:30)
[2024-06-05] MEDS ORDERED: ACETAMINOPHEN 325 MG TABLET PO PRN (18:30)
[2024-06-05] MEDS ORDERED: HYDROCODONE/APAP 5-325MG TABLET PO PRN (18:30)
[2024-06-05] MEDS ORDERED: ONDANSETRON 4 MG/2 ML VIAL IV PRN (18:30)
[2024-06-05] MEDS: DOCUSATE SODIUM 250 MG CAPSULE PO SCH (20:03)
[2024-06-05] MEDS: METHADONE HCL 10 MG TABLET PO SCH (20:03)
[2024-06-05 20:10] VITALS: BP 165/61; TEMP 97.7; O2SAT 97
[2024-06-05] MEDS: GABAPENTIN 300 MG CAPSULE PO ONE (20:19)
[2024-06-05] MEDS: BACLOFEN 10 MG TABLET PO SCH (20:41)
[2024-06-05] MEDS: ENALAPRILAT DIHYDRATE 1.25 MG/1 ML VIAL IV PRN (20:45)
[2024-06-05 20:55] VITALS: BP 159/63; O2SAT 96
[2024-06-06] VITALS: BP 125/49; TEMP 97.7; O2SAT 95
[2024-06-06] MEDS: MELATONIN 3 MG TABLET PO PRN (02:49)
[2024-06-06 02:53] VITALS: BP 137/55; TEMP 98; O2SAT 98
[2024-06-06] MEDS: PANTOPRAZOLE SODIUM 40 MG TABLET.DR PO SCH (06:14)
[2024-06-06 06:30] LABS: BASOPHILS % (AUTO) 0.3 % (0.0-2.0); EOSINOPHILS # (AUTO) 0.1 K/uL (0.0-0.7); EOSINOPHILS % (AUTO) 1.5 % (0.0-7.0); HEMATOCRIT 36.6 % (31.2-41.9); HEMOGLOBIN 12.5 g/dL (10.9-14.3); LYMPHOCYTES # (AUTO) 1.8 K/uL (0.8-4.8); LYMPHOCYTES % (AUTO) 33.7 % (20.5-51.5); MEAN CORPUSCULAR HEMOGLOBIN 31.3 uug (24.7-32.8); MEAN CORPUSCULAR HGB CONC 34 g/dL (32.3-35.6); MEAN CORPUSCULAR VOLUME 91.4 fL (75.5-95.3); MONOCYTES # (AUTO) 0.7 K/uL (0.1-1.30); MONOCYTES % (AUTO) 13.7 % (0.0-11.0); NEUTROPHILS # (AUTO) 2.6 K/uL (1.8-8.9); NEUTROPHILS % (AUTO) 50.8 % (38.5-71.5); PLATELET COUNT (AUTO) 176 K/uL (179-408); RED BLOOD CELL COUNT(AUTO) 4.01 MIL/uL (3.63-4.92); RED CELL DISTRIBUTION WIDTH 13.6 % (12.3-17.7); WHITE BLOOD COUNT (AUTO) 5.2 K/uL (3.8-11.8)
[2024-06-06 06:38] LABS: DIFFERENTIAL COMMENT 1
[2024-06-06 07:21] LABS: THYROID STIMULATING HORMONE 1.369 mIU/mL (0.358-3.740)
[2024-06-06 07:42] VITALS: BP 124/56; TEMP 97.6; O2SAT 95
[2024-06-06 08:06] LABS: BILIRUBIN,TOTAL 0.9 mg/dL (0.2-1.0); CALCIUM 8.9 mg/dL (8.5-10.1); CREATININE 0.8 mg/dL (0.6-1.3); MAGNESIUM 2.2 mg/dL (1.8-2.4); PHOSPHOROUS 3.5 mg/dL (2.5-4.9); POTASSIUM 3.5 mmol/L (3.5-5.1); TOTAL PROTEIN, SERUM 5.9 g/dL (6.4-8.2)
[2024-06-06] MEDS: ASPIRIN EC 325 MG TABLET.DR PO SCH (09:09)
[2024-06-06] MEDS: LISINOPRIL 20 MG TABLET PO SCH (09:10)
[2024-06-06] MEDS: GABAPENTIN 100 MG CAPSULE PO SCH (09:13)
[2024-06-06] MEDS: AMLODIPINE 5 MG TABLET PO SCH (09:14)
[2024-06-06] MEDS: FLUTICASONE PROP NASAL SPRAY 16 GM BOTTLE NS SCH (10:03)
[2024-06-06 12:00] VITALS: BP 124/46; TEMP 97.7; O2SAT 95
[2024-06-06] MEDS ORDERED: HYDROMORPHONE HCL 2 MG TABLET PO PRN ×2 (12:15→17:00)
[2024-06-06] MEDS: HYDROMORPHONE HCL 2 MG TABLET PO PRN ×2 (12:43→17:20)
[2024-06-06] MEDS: GABAPENTIN 300 MG CAPSULE PO SCH (13:10)
[2024-06-06 16:06] VITALS: BP 136/50; TEMP 97.6; O2SAT 96
[2024-06-06 20:43] VITALS: BP 102/48; TEMP 97.6; O2SAT 95
[2024-06-06] MEDS: DOCUSATE SODIUM 100 MG CAPSULE PO SCH (21:20)
[2024-06-07 00:10] VITALS: BP 148/55; TEMP 97.6; O2SAT 95
[2024-06-07 04:20] VITALS: BP 127/53; TEMP 97.7; O2SAT 95
[2024-06-07 07:32] VITALS: BP 131/49; TEMP 97.6; O2SAT 97
[2024-06-07 12:00] VITALS: BP 148/66; TEMP 97.8; O2SAT 96
[2024-06-07 16:03] VITALS: BP 117/54; TEMP 97.8; O2SAT 96
[2024-06-07] MEDS: ENOXAPARIN SODIUM 40 MG/0.4 ML DISP.SYRIN SQ SCH (18:20)
[2024-06-07 20:00] VITALS: BP 124/52; TEMP 97.4; O2SAT 92
[2024-06-08] VITALS: BP 150/52; TEMP 97.8; O2SAT 94
[2024-06-08 04:00] VITALS: BP 150/54; TEMP 97.5; O2SAT 95
[2024-06-08 06:45] LABS: BASOPHILS % (AUTO) 0.2 % (0.0-2.0); EOSINOPHILS # (AUTO) 0.1 K/uL (0.0-0.7); EOSINOPHILS % (AUTO) 1.5 % (0.0-7.0); HEMATOCRIT 38.6 % (31.2-41.9); HEMOGLOBIN 12.9 g/dL (10.9-14.3); LYMPHOCYTES # (AUTO) 1.4 K/uL (0.8-4.8); LYMPHOCYTES % (AUTO) 27.2 % (20.5-51.5); MEAN CORPUSCULAR HEMOGLOBIN 30.7 uug (24.7-32.8); MEAN CORPUSCULAR HGB CONC 33 g/dL (32.3-35.6); MONOCYTES # (AUTO) 0.7 K/uL (0.1-1.30); MONOCYTES % (AUTO) 14.1 % (0.0-11.0); NEUTROPHILS # (AUTO) 2.9 K/uL (1.8-8.9); PLATELET COUNT (AUTO) 164 K/uL (179-408); RED CELL DISTRIBUTION WIDTH 13.6 % (12.3-17.7)
[2024-06-08 06:55] LABS: DIFFERENTIAL COMMENT 1
[2024-06-08 07:02] LABS: CALCIUM 8.9 mg/dL (8.5-10.1); CARBON DIOXIDE 30 mmol/L (21-32); CHLORIDE 108 mmol/L (98-107); CREATININE 0.9 mg/dL (0.6-1.3); GLUCOSE 94 mg/dL (74-106); MAGNESIUM 2.1 mg/dL (1.8-2.4); SODIUM SERUM 144 mmol/L (136-145); UREA NITROGEN, BLOOD 15 mg/dL (7-18)
[2024-06-08 08:00] VITALS: BP 149/61; TEMP 98; O2SAT 97
[2024-06-08 08:31] VITALS: BP 156/47
[2024-06-08] MEDS: ENOXAPARIN SODIUM 40 MG/0.4 ML DISP.SYRIN SQ SCH (08:38)
[2024-06-08] MEDS ORDERED: MELA3TAB41 PO (09:14)
[2024-06-08] MEDS ORDERED: DOCU-141 PO (09:14)
[2024-06-08] MEDS ORDERED: ENOX40DI SQ (09:14)
[2024-06-08] MEDS ORDERED: HYDR2TAB7 PO (09:14)
[2024-06-08] MEDS ORDERED: BACL10TA PO (09:14)
[2024-06-08] MEDS ORDERED: ACET325T53 PO (09:14)
[2024-06-08] MEDS ORDERED: PANT40TA49 PO (09:14)
[2024-06-10] MEDS ORDERED: ERGOCALCIFEROL 50,000 UNIT CAPSULE PO SCH (09:00)
== END 2024-06-08 10:30 | disposition short-term general hospital (02) | DRG 311 ==
LOC: ER 14:37 → TELE3 18:27
PROVIDERS: ADMIT Internal Medicine; ATTEND Internal Medicine
DX: I24.9 Acute ischemic heart disease, unspecified (principal); I50.32 Chronic diastolic (congestive) heart failure; D68.59 Other primary thrombophilia; J98.11 Atelectasis; I16.9 Hypertensive crisis, unspecified; I25.110 Atherosclerotic heart disease of native coronary artery with unstable angina pectoris; I11.0 Hypertensive heart disease with heart failure; N81.10 Cystocele, unspecified; E66.9 Obesity, unspecified; Z68.30 Body mass index [BMI] 30.0-30.9, adult; R26.81 Unsteadiness on feet; R29.6 Repeated falls; Z91.81 History of falling; Z87.81 Personal history of (healed) traumatic fracture; Z85.3 Personal history of malignant neoplasm of breast; E04.1 Nontoxic single thyroid nodule; N81.6 Rectocele; I87.2 Venous insufficiency (chronic) (peripheral); M50.322 Other cervical disc degeneration at C5-C6 level; Z74.09 Other reduced mobility; Z86.69 Personal history of other diseases of the nervous system and sense organs; R91.8 Other nonspecific abnormal finding of lung field; K21.9 Gastro-esophageal reflux disease without esophagitis; K44.9 Diaphragmatic hernia without obstruction or gangrene; Z98.82 Breast implant status; R00.1 Bradycardia, unspecified; G31.84 Mild cognitive impairment of uncertain or unknown etiology; E78.5 Hyperlipidemia, unspecified; G44.40 Drug-induced headache, not elsewhere classified, not intractable; T46.3X5A Adverse effect of coronary vasodilators, initial encounter; Y92.238 Other place in hospital as the place of occurrence of the external cause; I35.8 Other nonrheumatic aortic valve disorders; G89.4 Chronic pain syndrome; M79.7 Fibromyalgia; Z79.899 Other long term (current) drug therapy; Z87.440 Personal history of urinary (tract) infections; Z88.2 Allergy status to sulfonamides; K59.09 Other constipation; Z79.82 Long term (current) use of aspirin; J45.909 Unspecified asthma, uncomplicated; M41.9 Scoliosis, unspecified
CPT/HCPCS: 36415; 71045; 71260; 83735; 84100; 84443; 84484; 85025; 93005; 93307; G0378; J1650; J3490; J3535; Q9967

== ENCOUNTER 2025-08-24 13:20 | Emergency (ER) | payer MEDICARE, OTHER ==
[~2025-08-24] VITALS: Ht 144.8 cm; Wt 75.7 kg
[~2025-08-24 13:20] MED LIST changes: +ACET325T53 PO; +BACL10TA PO; -CHOL500050 PO; +DOCU-141 PO; +ENOX40DI SQ; +HYDR2TAB7 PO; -LEVO500T2 PO; +MELA3TAB41 PO; -METH10TA PO; -OMEP20CA15 PO; +PANT40TA49 PO
[2025-08-24 13:21] VITALS: BP 140/85
[2025-08-24] MEDS ORDERED: ONDA4TAB5 PO (14:59)
[2025-08-24 15:20] VITALS: BP 140/85; O2SAT 97
== END 2025-08-24 15:20 | disposition home or self-care (01) ==
LOC: ER 13:20
DX: S80.01XA Contusion of right knee, initial encounter (principal); S09.8XXA Other specified injuries of head, initial encounter; M54.2 Cervicalgia; J45.909 Unspecified asthma, uncomplicated; M79.7 Fibromyalgia; Z79.82 Long term (current) use of aspirin; Z79.899 Other long term (current) drug therapy; Z88.1 Allergy status to other antibiotic agents; Z88.2 Allergy status to sulfonamides; Z88.5 Allergy status to narcotic agent; Z88.7 Allergy status to serum and vaccine; Z90.49 Acquired absence of other specified parts of digestive tract; Z90.710 Acquired absence of both cervix and uterus; Z98.82 Breast implant status; Z86.69 Personal history of other diseases of the nervous system and sense organs; Z87.19 Personal history of other diseases of the digestive system; Z87.448 Personal history of other diseases of urinary system; Z87.42 Personal history of other diseases of the female genital tract; Z60.2 Problems related to living alone; W01.0XXA Fall on same level from slipping, tripping and stumbling without subsequent striking against object, initial encounter; Y93.89 Activity, other specified; Y92.89 Other specified places as the place of occurrence of the external cause; Y99.8 Other external cause status
CPT/HCPCS: 70450; A4606; A4663